=== PATIENT | female | born 1965 | race Two or more races ===

== ENCOUNTER 2019-05-26 13:36 | Emergency (ER) | payer MEDICAID ==
[~2019-05-26] VITALS: Ht 165.1 cm; Wt 83.9 kg
[~2019-05-26 13:36] MED LIST: ALBUTEROL INHALER
[2019-05-26 15:44] VITALS: BP 137/88
== END 2019-05-26 16:39 | disposition home or self-care (01) ==
LOC: ER 13:46
DX: H00.024 Hordeolum internum left upper eyelid (principal); I10 Essential (primary) hypertension; F17.210 Nicotine dependence, cigarettes, uncomplicated; Z98.51 Tubal ligation status; Z88.1 Allergy status to other antibiotic agents